=== PATIENT | female | born 1990 | race Caucasian/White ===

== ENCOUNTER 2016-11-30 04:02 | Observation (INO) ==
[2016-11-29 21:52] LABS: Bilirubin,Urine Negative (Negative); Blood,Urine Negative (Negative); Clarity,Urine Cloudy (Clear); Color,Urine Yellow (Yellow); Glucose,Urine (UA) Normal (Normal); Ketones,Urine 40 mg/dL (Negative); Leukocyte Esterase,Urine Small (Negative); Nitrite,Urine Negative (Negative); Protein,Urine Trace mg/dL (Neg-Trace); Specific Gravity,Urine 1.023 (1.010-1.025); Urobilinogen,Urine Normal (Normal)
[2016-11-29 21:55] LABS: Bacteria,Urine Few per hpf (None-Few); RBC,Urine 0-3 per hpf (0-3); Squamous Epithelial Cell,Urine Many per lpf (None-Few); WBC,Urine 15-30 per hpf (0-3)
--- NOTE | 2016-11-29 22:07 | OB/GYN History & Physical ---
Date of Encounter: 11/29/16 Time of Encounter: 22:02 Assessment and Plan (1) 29 to 30 weeks gestation of Current visit: Yes Status: Acute (2) Vaginal spotting Current visit: Yes Status: Acute Speculum exam shows no blood in vaginal vault. Pt states bleeding is always bright red and never brown or any other color. Pt states she has prenantal care and frequent US due to weight loss and has never been told concerns about her placenta location. Will obtain trans vaginal US to check placenta location, cervical length and AYE. Pt discussed with Dr. Wynn History of Present Illness Chief complaint: vaginal bleeding; 29 weeks HPI: Ms. Mcgrath is a 26 year old female [id number], currently 29 weeks states that she has encounted vaginal spotting throughout this and is currently between OBGYN providers from [facility] to [place]. States that since 11:00pm yesterday she has been experiencing increased vaginal bleeding which is described as spotting that is bright red and when she wipes and states that it has continued up until now but has not used a whole pad yet. Patient denies N/V/ fevers. Patient states that she has not had any complications during this and she is not experiencing low back pain or abdominal pain and denies contractions at this time. Patient denies vaginal blood clots and states that she is experiencing increased sharp pain in the vaginal canal. She states that she failed her 1hr glucose test and has not taken her 3 hour test yet, and states that she has also lost 23 pounds during this . Past Med Surg Social Fam HX - Past Medical History Medical history: no medical history Psychiatric history: no psych history - Past Surgical History Surgical History: cholecystectomy - Social History Smoking Status: Never smoker Smokeless Tobacco Status: No Alcohol use: none Drug use: none Obstetrical History - Pregnancies : 2 Para: 1 Term: 1 : 0 Ab's: 0 Livin Medications and Allergies Promethazine [Phenergan] 25 mg PO Q6HR PRN 03/18/16 [History] Tablet 11/29/16 [History] Allergies No Known Allergies Allergy (Verified 03/18/16 02:40) Review of System OB All systems PM: reviewed and no additional remarkable complaints except as stated - Genitourinary Genitourinary: as per HPI, vaginal discharge (described as bright red blood spotting without clots), other (vaginal canal pain) Exam - Constitutional Constitutional: well developed, well nourished, no acute distress, average body habitus, morbidly obese - HEENT HEENT: Normocephaly, Mucus Membranes Moist - Neck Neck exam: full ROM - Breasts Breast: bilateral: normal - Abdomen Abdomen: Present: bowel sounds normal, gravid - Vagina Vagina: Present: normal moisture, discharge (thick and white, no blood in vault) - Cervix Dilation: 1 (per garbage collector driver) Effacement: 50 Station: -3 - Uterus Uterus exam: Present: normal size, normal contour - Adnexa Adnexa: bilateral: normal - Anus/Rectum Anus/Rectum: Present: normal perianal skin Results Abnormal lab results Urine Clarity Cloudy (Clear) A 11/29/16 21:48 Urine Ketones 40 mg/dL (Negative) H 11/29/16 21:48 Ur Leukocyte Esterase Small (Negative) H 11/29/16 21:48 All other labs normal. - VTE Reasons for not Prescribing Prophylaxis: Treatment not Indicated - Low risk for VTE
[2016-11-29 22:09] LABS: Amorphous Sediment,Urine Moderate (Few); Hyaline Casts,Urine Few per lpf (None-Few)
--- NOTE | 2016-11-30 00:41 | OB Labor Progress Note ---
Date of Encounter: 11/30/16 Time of Encounter: 00:38 Labor Progress Note - Subjective Subjective: Pt states feels contractions are a little stronger, but not painful. Pt states she is ready to "get the show on the road" and is willing to augment with pitocin - Cervix Cervix: 3/70/-2 - Heart Tones Heart Tones: Intermittent monitoring previously last 125/moderate/+accels/-decels - Interventions Interventions: VE, will start pitocin per policy - Plan Plan: Pitcocin per policy, PCN for GBS regular diet continuous monitoring now on pitocin
[~2016-11-30 04:02] MED LIST: Betamethasone Acet/SodPhos 6 MG/ML MDV IM SCH; Oxytocin 20 units/ LR 1000 mL 20 UNIT/1,000 ML BAG IVC SCH
[2016-11-30] MEDS ORDERED: Betamethasone Acet/SodPhos 6 MG/ML MDV IM STA (14:18)
--- NOTE | 2016-11-30 14:23 | Discharge Summary ---
Date of Encounter: 11/30/16 Time of Encounter: 14:54 - Discharge Diagnosis (1) 29 to 30 weeks gestation of Priority: Primary Status: Acute Comments: Ms. Mcgrath is not well known to this practice or to [place]. She was dismissed from [facility] as she missed her first appointment. She was followed by [facility] however she is transitioning to [facility]. Speculum exam by brand advocate did not show any blood. During her stay, she has not had any spotting nor has she had any sharp pains. Patient notes she has had light spotting throughout her however she was concerned last night as it was, "heavier." Transvaginal ultrasound interpreted by radiology as: single live intrauterine with HR appx 133, spontaneous movements confirmed, cephalic lie, anterior placenta, AYE 7.4cm, Cervical length 2.0cm, Estimated gestation 28w 6d. Transvaginal US 11/29/16 23:06 IMPRESSION: Live 3rd trimester intrauterine . D/ / Henrique Rowan MD / Henrique Rowan MD Interpreting Provider: Henrique Rowan MD Patient received 4g MgS at 02:03 on 11/30/16. Patient given first dose Celestone at 02:03 on 11/30/16. After discussion with Dr. Wynn and Dr. Riley, will re-dose at 12hrs. Advised to follow-up with her current OB: Aisha in [facility]. Next scheduled appointment is Saturday at 08:30. (2) Vaginal spotting Priority: Secondary Status: Resolved Comments: as above - Discharge Medications Home Medications: Promethazine [Phenergan] 25 mg PO Q6HR PRN 03/18/16 [History] Tablet 11/29/16 [History] Allergies/Adverse Reactions: Allergies No Known Allergies Allergy (Verified 03/18/16 02:40) Data Procedures and tests throughout hospitalization: Laboratory Tests 11/29/16 21:48 Urine Color Yellow Urine Clarity Cloudy A Urine pH 7.0 Ur Specific Somers 1.023 Urine Protein Trace Urine Glucose (UA) Normal Urine Ketones 40 H Urine Blood Negative Urine Nitrite Negative Urine Bilirubin Negative Urine Urobilinogen Normal Ur Leukocyte Esterase Small H Urine Microscopic RBC 0-3 Urine Microscopic WBC 15-30 H Ur Squamous Epith Cells Many H Amorphous Sediment Moderate H Urine Bacteria Few Hyaline Casts Few Ur Culture Indicated? YES A Labs on day of discharge: Labs from last 24 hours 11/29/16 21:48 Urine Color Yellow Urine Clarity Cloudy A Urine pH 7.0 Ur Specific [place] 1.023 Urine Protein Trace Urine Glucose (UA) Normal Urine Ketones 40 H Urine Blood Negative Urine Nitrite Negative Urine Bilirubin Negative Urine Urobilinogen Normal Ur Leukocyte Esterase Small H Urine Microscopic RBC 0-3 Urine Microscopic WBC 15-30 H Ur Squamous Epith Cells Many H Amorphous Sediment Moderate H Urine Bacteria Few Hyaline Casts Few Ur Culture Indicated? YES A - Impressions ITS Impressions Transvaginal US 11/29/16 23:06 IMPRESSION: Live 3rd trimester intrauterine . D/ / Henrique Rowan MD / Henrique Rowan MD Interpreting Provider: Henrique Rowan MD Date of admission: 11/30/16 04:02 Primary care physician: Aisha Martins CNM [facility] [place] Consults: none Discharging clinician: Afshin Adams Anticipated date of discharge: 11/30/16 - Patient Status Disposition: Home, Self-Care Condition: Good Functional capacity at discharge: independent ambulation Overall status at discharge: patient is back to baseline - Discharge Instructions Follow Up With: Aisha Martins CNM [Other] Additional Instructions: Return to the emergency department if you experience headache, blurry vision, have decreased movement, vaginal discharge or bleeding, or have any new or concerning symptoms. Please keep your existing appointment with Aisha Martins CNM this coming Saturday at 08:30. - Diet and Activity Activity: resume usual activities as tolerated Diet: advance to your usual diet Hospital Course MEDICAL ANTHROPOLOGY DIRECTOR Time Attestation: Total time spent providing and/or coordinating discharge services: Exam - Constitutional General appearance IM: A&O X 3 - Respiratory Respiratory exam: Present: CTAB - Cardiovascular Cardiovascular exam IM: Present: RRR, +S1, +S2 - GI/Abdominal GI/Abdominal exam IM: normal bowel sounds, soft, no peritoneal signs - Uterus Position: 3 Fingers Above Umbilicus - Extremities Exam Extremities exam IM: Present: normal capillary refill, warm, radial pulses palpable and symetrical - VTE Reasons for not Prescribing Prophylaxis: Treatment not Indicated - Low risk for VTE
== END 2016-11-30 15:12 | disposition home or self-care (01) | DRG 563 ==
LOC: 1NENULAB
PROVIDERS: ADMIT Obstetrics & Gynecology; ATTEND Obstetrics & Gynecology